=== PATIENT | male | born 1980 | race Two or more races ===

== ENCOUNTER 2024-04-26 11:41 | Emergency (ER) | payer OTHER ==
[2024-04-26 11:51] VITALS: RESP 18
--- NOTE | 2024-04-26 12:34 | ED ---
General Adult HPI - General Chief complaint: Extremity Injury, Lower Stated complaint: foot injury Time Seen by Provider: 04/26/24 11:53 Source: patient, RN notes reviewed Mode of arrival: ambulatory Limitations: no limitations - History of Present Illness Initial comments: 44-year-old male presents to the emergency department for evaluation of right to e injury. Patient states that yesterday he was carrying a box of weights when it fell onto his distal right foot. He states that it was about 50 or 60 pounds. He states that the weights fell from 3 to 4 foot high. He states that he is able to ambulate but cannot bear weight on the medial portion of his foot. He has not taken anything for the pain today. - Related Data Allergies Allergy/AdvReac Type Severity Reaction Status Date / Time codeine AdvReac Rash/Hives Verified 04/26/24 11:51 Review of Systems ROS Statement: Those systems with pertinent positive or pertinent negative responses have been documented in the HPI. ROS Other: All systems not noted in ROS Statement are negative. Past Medical History Past Medical History: No Reported History Past Surgical History: Hernia Repair Past Psychological History: No Psychological Hx Reported Smoking Status: Current some day smoker Past Alcohol Use History: Rare Past Drug Use History: None Reported General Exam Limitations: no limitations General appearance: alert, in no apparent distress Head exam: Present: atraumatic, normocephalic, normal inspection Eye exam: Present: normal appearance, PERRL, EOMI. Absent: scleral icterus, conjunctival injection, periorbital swelling ENT exam: Present: normal exam, mucous membranes moist Extremities exam: Present: tenderness (Tenderness at the first MCP with ecchymosis present), normal capillary refill. Absent: full ROM (Decreased range of motion of the first digit of the right foot), pedal edema, joint swelling, calf tenderness Back exam: Present: normal inspection Neurological exam: Present: alert, oriented X3 Psychiatric exam: Present: normal affect, normal mood Skin exam: Present: warm, dry, intact, other (Ecchymosis to the right first digit of the foot). Absent: normal color Course Vital Signs 04/26/24 11:49 Temperature 97.3 F L Pulse Rate 84 Respiratory 18 Rate Blood Pressure 117/71 O2 Sat by Pulse 99 Oximetry Medical Decision Making - Medical Decision Making Was pt. sent in by a medical professional or institution (Dr., PA, TELEPHONE SOLICITOR SUPERVISOR, urgent care, hospital, or assisted...) When possible be specific @ -[No] Did you speak to anyone other than the patient for history (EMS, parent, family, police, friend...)? What history was obtained from this source @ -[No] Did you review nursing and triage notes (agree or disagree)? Why? @ -[I reviewed and agree with nursing and triage notes] Were old charts reviewed (outside hosp., previous admission, EMS record, old EKG, old radiological studies, urgent care reports/EKG's, assisted records)? Report findings @ -[No old charts were reviewed] Differential Diagnosis (chest pain, altered mental status, abdominal pain women, abdominal pain men, vaginal bleeding, weakness, fever, dyspnea, syncope, headache, dizziness, GI bleed, back pain, seizure, CVA, palpatations, mental health, musculoskeletal)? @ -[Differential Musculoskeletal Muscular strain, contusion, ligament sprain, fracture, arthritis, septic arthritis, bursitis, cellulitis, muscle spasm, nerve compression, DVT, arterial occlusion, herpes zoster, electrolyte abnormality, tumor.... This is not meant to be in all inclusive list] EKG interpreted by me (3pts min.). @ -[None] X-rays interpreted by me (1pt min.). @ -[X-ray of the right foot shows] CT interpreted by me (1pt min.). @ -[None done] U/S interpreted by me (1pt. min.). @ -[None done] What testing was considered but not performed or refused? (CT, X-rays, U/S, labs)? Why? @ -[None] What meds were considered but not given or refused? Why? @ -[None] Did you discuss the management of the patient with other professionals (professionals i.e. GRAY Rojas, TELEPHONE SOLICITOR SUPERVISOR, lab, RT, psych nurse, social and political studies professor, lease administrator, teacher, occupational medicine officer, case assistant)? Give summary @ -[No] Was smoking cessation discussed for >3mins.? @ -[No] Was critical care preformed (if so, how long)? @ -[No] Were there social determinants of health that impacted care today? How? (Homelessness, low income, unemployed, alcoholism, drug addiction, transportation, low edu. Level, literacy, decrease access to med. care, custodial, rehab)? @ -[No] Was there de-escalation of care discussed even if they declined (Discuss DNR or withdrawal of care, Hospice)? DNR status @ -[No] What co-morbidities impacted this encounter? (DM, HTN, Smoking, COPD, CAD, Cancer, CVA, ARF, Chemo, Hep., AIDS, mental health diagnosis, sleep apnea, morbid obesity)? @ -[None] Was patient admitted / discharged? Hospital course, mention meds given and route, prescriptions, significant lab abnormalities, going to OR and other pertinent info. @ -[hospital course] Undiagnosed new problem with uncertain prognosis? @ -[No] Drug Therapy requiring intensive monitoring for toxicity (Heparin, Nitro, Insulin, Cardizem)? @ -[No] Were any procedures done? @ -[No] Diagnosis/symptom? @ -[default] Acute, or Chronic, or Acute on Chronic? @ -[default] Uncomplicated (without systemic symptoms) or Complicated (systemic symptoms)? @ -[default] Side effects of treatment? @ -[No] Exacerbation, Progression, or Severe Exacerbation? @ -[No] Poses a threat to life or bodily function? How? (Chest pain, [place], [place], pneumonia, PE, COPD, DKA, ARF, appy, cholecystitis, CVA, Diverticulitis, Homicidal, Suicidal, threat to staff... and all critical care pts) @ -[No] Disposition Clinical Impression: Toe fracture Disposition: HOME SELF-CARE Condition: Stable Instructions (If sedation given, give patient instructions): Toe Fracture (ED) Additional Instructions: Please follow up with orthopedics. Return to the emergency department for new or worsening symptoms. Is patient prescribed a controlled substance at d/c from ED?: No Referrals: None,Stated [Primary Care Provider] - 1-2 days Presley Whitmore DO [Doctor of Osteopathic Medicine] - 1-2 days
[2024-04-26] MEDS: KETOROLAC 15 MG/ML 1 ML VIAL IM STA (12:42)
--- NOTE | 2024-04-26 12:56 | XR ---
EXAMINATION TYPE: XR foot complete RT DATE OF EXAM: 04/26/2024 12:44 PM CLINICAL INDICATION:Male, 44 years old with history of 1st MCP pain, dropped weights; [facility] COMPARISON: TECHNIQUE: XR foot complete RT examined in the AP, oblique, and lateral projections. FINDINGS: No clear evidence of any acute osseous pathology. Linear lucency and possible cortical break perce ived on the lateral view only is potentially a nondisplaced fracture. No evidence of soft tissue sw elling. Joints are preserved. IMPRESSION: Cannot entirely exclude nondisplaced fracture involving the proximal phalanx of the great toe. Sascha mmend conservative treatment with splinting and repeat x-ray in 2 weeks.
[2024-04-26 14:34] VITALS: BP 115/89; PULSE 80; TEMP 97.7
== END 2024-04-26 14:35 | disposition home or self-care (01) ==
LOC: EC 11:41
DX: S92.911A Unspecified fracture of right toe(s), initial encounter for closed fracture (principal); F17.200 Nicotine dependence, unspecified, uncomplicated; Z88.5 Allergy status to narcotic agent; X50.0XXA Overexertion from strenuous movement or load, initial encounter
CPT/HCPCS: 73630; 99283; 96372; J1885